=== PATIENT | female | born 1975 | race Asian ===

== ENCOUNTER 2017-05-04 19:07 | Emergency (ER) | payer BC ==
[~2017-05-04] VITALS: Ht 149.9 cm; Wt 45.4 kg
--- NOTE | 2017-05-04 19:24 | NUR ---
PT WENT TO ROOM #7 VIA WC.
--- NOTE | 2017-05-04 19:24 | NUR ---
PT PRESENTED TO THE ER WITH A C/O GLF APPROX 2 HRS AGO. PT STATED THAT SHE FELT WEAK, HER KNEES JUST GAVE OUT AND SHE FELL. PT DENIES DIZZINESS.
--- NOTE | 2017-05-04 20:01 | NUR ---
[facility] WAIVER IS IN THE CHART.
--- NOTE | 2017-05-04 20:07 | NUR ---
XRAY IN PROGRESS AT THE BEDSIDE.
[2017-05-04] MEDS ORDERED: ACETAMINOPHEN ES 500 MG TABLET ONE (20:40)
--- NOTE | 2017-05-04 20:43 | NUR ---
PT REC'D MEDICATION ORDERED.
--- NOTE | 2017-05-04 20:43 | NUR ---
CALLED RADIOLOGY RE: IMAGING NOT SEEN IN CHART.
--- NOTE | 2017-05-04 20:48 | NUR ---
WILL CHECK PT'S ABILITY TO AMBULATE AT 2100
[2017-05-04] MEDS ORDERED: ACETAMINOPHEN ES 500 MG TABLET PO ONE (21:00)
--- NOTE | 2017-05-04 21:28 | NUR ---
PT AMBULATED WITH A STEADY GAIT. PT THEN FELT LIKE SHE NEEDED SOMETHING TO STABILIZE HER. DR. LLOYD IS AWARE AND [facility] ORDERED. CALLED NURSING LOSS PREVENTION SPECIALIST FOR [facility].
--- NOTE | 2017-05-04 21:31 | NUR ---
Patient discharged to home in stable condition. Written and verbal after care instructions given. Patient verbalizes understanding of instruction. PT TO RECEIVE A CANE TO AMBULATE WITH.
[2017-05-04 21:46] VITALS: BP 138/87
== END 2017-05-04 21:47 | disposition home or self-care (01) ==
LOC: ER 19:10
DX: M54.42 Lumbago with sciatica, left side (principal); M54.41 Lumbago with sciatica, right side
CPT/HCPCS: 72110-TC; A4606; Z7610